=== PATIENT | female | born 1940 | race African-American/Black ===

== ENCOUNTER → 2017-08-07 | Outpatient (RCR) | payer OTHER ==
[~2017-08-07] MED LIST: ACETAMINOPHEN-1 EAC1; ACETAMINOPHEN-1 EAC1 ORAL; ACETAMINOPHN-B1 EACH ORAL; ADVAIR 250-501 EACH; ADVAIR 250/501 PUFFS INH; ALBUTEROL SULF8.5 GM INH; AMLODIPINE BES2.5 MG; AMLODIPINE BES2.5 MG ORAL; ANTACID GELATI1 EACH PO; AUGMENTIN 875-1 EAC1 ORAL; CALCITRATE + V1 EACH PO; CYCLOBENZAPRINE10 MG ORAL; HYDROCHLOROTH12.5 M2 ORAL; LOSARTAN POTASS50 MG ORAL; LOSARTAN-HCTZ1 EACH; MAGNESIUM PO; NEXIUM 24HR20 MG PO; NEXIUM PO; NEXIUM40 MG; ONDANSETRON ODT4 MG ORAL; PHENERGAN25 M1 ORAL; PRAVACHOL20 MG ORAL; PROAIR HFA8.5 GM; SIMVASTATIN PO; SIMVASTATIN20 MG; VIBRAMYCIN100 MG ORAL; VOLTAREN100 G1
== END | disposition home or self-care (01) ==
LOC: PTY 07-21 14:15
DX: M25.511 Pain in right shoulder (principal); M19.011 Primary osteoarthritis, right shoulder
CPT/HCPCS: 97035; 97110; 97140; 97162; G0283

== ENCOUNTER 2017-08-29 14:30 | Outpatient (RCR) | payer OTHER | END 2017-09-07 | disposition home or self-care (01) | LOC: PTY 14:30 | DX: M25.511 Pain in right shoulder (principal); M19.011 Primary osteoarthritis, right shoulder; I10 Essential (primary) hypertension; E11.9 Type 2 diabetes mellitus without complications; M19.90 Unspecified osteoarthritis, unspecified site; J45.909 Unspecified asthma, uncomplicated | CPT/HCPCS: 97110; 97140; 97535; G0283 ==

== ENCOUNTER 2017-09-26 13:05 | Outpatient (RCR) | payer OTHER | END 2017-10-08 | disposition home or self-care (01) | LOC: PTY 13:05 | DX: M19.011 Primary osteoarthritis, right shoulder (principal); M25.511 Pain in right shoulder | CPT/HCPCS: 97110; 97140; 97530; G0283 ==

== ENCOUNTER 2017-12-10 09:30 | Outpatient (RCR) | payer OTHER | END 2018-01-05 | disposition home or self-care (01) | LOC: PTY 09:30 | DX: M25.511 Pain in right shoulder (principal); M19.011 Primary osteoarthritis, right shoulder; Z96.611 Presence of right artificial shoulder joint ==

== ENCOUNTER 2018-01-08 14:15 | Outpatient (RCR) | payer OTHER | END 2018-02-05 | disposition home or self-care (01) | LOC: PTY 14:15 | DX: M19.011 Primary osteoarthritis, right shoulder (principal); Z96.611 Presence of right artificial shoulder joint; E11.9 Type 2 diabetes mellitus without complications; I10 Essential (primary) hypertension ==

== ENCOUNTER 2018-02-11 14:00 | Outpatient (RCR) | payer OTHER | END 2018-03-07 | disposition home or self-care (01) | LOC: PTY 14:00 | DX: Z96.611 Presence of right artificial shoulder joint (principal) ==

== ENCOUNTER 2018-03-13 09:45 | Outpatient (RCR) | payer OTHER | END 2018-04-07 | disposition home or self-care (01) | LOC: PTY 09:45 | DX: Z47.1 Aftercare following joint replacement surgery (principal); Z96.611 Presence of right artificial shoulder joint ==

== ENCOUNTER 2018-04-08 14:00 | Outpatient (RCR) | payer OTHER | END 2018-05-08 | disposition home or self-care (01) | LOC: PTY 14:00 | DX: Z47.1 Aftercare following joint replacement surgery (principal); Z96.611 Presence of right artificial shoulder joint ==

== ENCOUNTER 2018-05-13 14:23 | Outpatient (RCR) | payer OTHER | END 2018-06-07 | disposition home or self-care (01) | LOC: PTY 14:23 | DX: Z47.1 Aftercare following joint replacement surgery (principal); Z96.611 Presence of right artificial shoulder joint ==